=== PATIENT | female | born 1975 | race Caucasian/White ===

== ENCOUNTER 2017-08-06 11:59 | Observation (INO) | payer BC ==
[2017-08-06] MEDS ORDERED: Sodium Chloride 0.9% 1,000 ML IV STA (14:30)
[2017-08-06 14:51] LABS: BASO % 0.4 % (0.0-2.0); EOS # 0.1 K/uL (0.0-0.7); EOS % 1.1 % (0.0-4.0); HEMOGLOBIN 14.5 g/dL (12.0-16.0); LYMPH # 1.9 K/uL (1.0-4.3); MEAN CORPUSCULAR HEMOGLOBIN 30.3 pg (27.0-31.0); MEAN CORPUSCULAR HGB CONC 33.3 g/dL (33.0-37.0); MEAN PLATELET VOLUME 9.5 fl (7.2-11.7); MONO # 0.6 K/uL (0.0-0.8); MONO % 6.1 % (0.0-10.0); NEUT # 7.5 K/uL (1.8-7.0); NEUT % 73.4 % (50.0-75.0); NRBC % 0.2 % (0.0-0.0); RBC 4.79 Mil/uL (3.80-5.20); RED CELL DISTRIBUTION WIDTH 12.7 % (11.5-14.5); WHITE BLOOD COUNT 10.2 K/uL (4.8-10.8)
[2017-08-06 15:00] LABS: ALB/GLOB RATIO 1.1 (1.0-2.1); ALBUMIN 4.2 g/dL (3.5-5.0); ALT/SGPT 35 U/L (9-52); AST/SGOT 19 U/L (14-36); BLOOD UREA NITROGEN 20 mg/dl (7-17); CALCIUM 9.9 mg/dL (8.4-10.2); GFR AFRICAN-AMERICAN > 60; GFR NON-AFRICAN AMERICAN > 60
[2017-08-06 15:14] LABS: SQUAMOUS EPITHIAL 3 /hpf (0-5); URINE AMORPHOUS SEDIMENT RARE /ul (<OCC); URINE BACTERIA RARE (<OCC); URINE BILIRUBIN NEGATIVE (NEGATIVE); URINE BLOOD SMALL (NEGATIVE); URINE CLARITY CLOUDY (Clear); URINE COLOR YELLOW (YELLOW); URINE GLUCOSE (UA) NEG (Normal); URINE LEUKOCYTE ESTERASE SMALL Leu/uL (Negative); URINE NITRATE NEGATIVE (NEGATIVE); URINE PROTEIN NEGATIVE (NEGATIVE); URINE UROBILINOGEN 0.2-1.0 mg/dL (0.2-1.0)
[2017-08-06] MEDS ORDERED: Sodium Chloride 0.9% 100 ML ONE (15:54)
[2017-08-06] MEDS ORDERED: Iodixanol 320 MG/ML 100 ML BOTTLE IV ONE (15:54)
--- NOTE | 2017-08-06 16:55 | CT ---
PROCEDURE: CT Angiography of the Brain. HISTORY: severe ongoing headache COMPARISON: None available. TECHNIQUE: CT angiography of the intracranial and cervical arteries was performed. Coronal and sagittal maximum intensity projection reformated images were generated. This CT exam was performed using one or more of the following dose reduction techniques: Automated exposure control, adjustment of the mA and/or kV according to patient size, and/or use of iterative reconstruction technique. FINDINGS: INTERNAL CEREBRAL ARTERIES: Unremarkable. The skull base, petrous, cavernous and supraclinoid segments are bilaterally widely patent. ANTERIOR CEREBRAL ARTERIES: Unremarkable. A1 and A2 segments are widely patent. Smaller distal branches unremarkable, as visualized. MIDDLE CEREBRAL ARTERIES: Unremarkable. M1 and M2 segments are widely patent. Perisylvian branches grossly symmetric. POSTERIOR CIRCULATION: Basilar Artery: Unremarkable. Distal Vertebral Arteries: Unremarkable. Posterior Cerebral Arteries: A robust right T1 post cerebral artery is identified with a hypoplastic left P1 segment. Posterior Inferior Cerebellar Arteries: Unremarkable. NECK CTA: Common Carotid arteries: The bilateral common carotid appear widely patent from their origins to their bifurcations with no significant stenosis appreciated. No evidence to suggest common carotid artery dissection. Internal Carotid arteries: No significant stenosis is appreciated throughout the cervical internal carotid artery segments bilaterally and there is no evidence of dissection either. External Carotid arteries: Appear unremarkable bilaterally. Vertebral arteries: The bilateral vertebral arteries appear normal in caliber from their origins to their junction with the basilar artery. No significant stenosis or definite pattern of dissection. ANEURYSM/ VASCULAR MALFORMATIONS: None. OTHER FINDINGS: IMPRESSION: Unremarkable brain and neck CT angiography.
--- NOTE | 2017-08-06 17:10 | ED PDOC ---
HPI: Headache Time Seen by Provider: 08/06/17 14:05 Chief Complaint (Nursing): Headache Chief Complaint (Provider): neck pain, headache History Per: Patient, Family (mother) History/Exam Limitations: no limitations Onset/Duration Of Symptoms: Days (2 wks) Current Symptoms Are (Timing): Still Present Severity: Severe Quality: Sharp Preceeding Symptoms: None Associated Symptoms: denies: Photophobia, Blurred Vision, Nausea, Vomiting Additional Complaint(s): 41yo female presents to ED with mother states having ongoing and worsening neck pain radiating to the occiput for last 2 weeks. Has been seen in 3 EDs now with multiple imaging and diagnostic testing, has copies of CT brain (no contrast), [facility]. Given robaxin now flexeril with no relief. Notes headache wraps to superior head, denies fever, photophobia, vomiting, change vision. She does not sound hypersensitivity. Denies syncope, seizure, head trauma, focal weakness or prior hx migrane/headache. Past Medical History Reviewed: Historical Data, Nursing Documentation, Vital Signs Vital Signs: Last Vital Signs Temp 98.6 F 08/06/17 12:27 Pulse 84 08/06/17 12:27 Resp 16 08/06/17 12:27 BP 103/68 08/06/17 12:27 Pulse Ox 99 08/06/17 12:27 - Medical History PMH: No Chronic Diseases - Surgical History Surgical History: No Surg Hx - Family History Family History: States: Unknown Family Hx - Living Arrangements Living Arrangements: With Family - Social History Current smoker - smoking cessation education provided: No - Home Medications Home Medications: Ambulatory Orders Medication Instructions Recorded Cyclobenzaprine [Flexeril] 10 mg PO Q8H PRN 08/06/17 Diazepam [Valium] 2 mg PO Q8H PRN 08/06/17 Ketorolac Tromethamine [Toradol] 10 mg PO Q6H PRN 08/06/17 Methylprednisolone [Medrol Dose 4 mg PO ASDIR 08/06/17 Pack (21 tabs)] - Allergies Allergies/Adverse Reactions: Allergies Allergy/AdvReac Type Severity Reaction Status Date / Time No Known Allergies Allergy Verified 08/06/17 12:26 Review of Systems ROS Statement: Except As Marked, All Systems Reviewed And Found Negative Constitutional: Negative for: Fever, Chills Cardiovascular: Negative for: Chest Pain, Palpitations Respiratory: Negative for: Cough, Shortness of Breath Gastrointestinal: Negative for: Nausea, Vomiting Genitourinary Female: Negative for: Dysuria, Frequency Musculoskeletal: Positive for: Neck Pain Neurological: Positive for: Headache. Negative for: Weakness, Numbness, Incoordination, Change in Speech, Seizures, Altered Mental Status, Dizziness Psych: Negative for: Anxiety, Suicidal ideation Physical Exam - Reviewed Nursing Documentation Reviewed: Yes Vital Signs Reviewed: Yes - Physical Exam Appears: Positive for: Well, Non-toxic, No Acute Distress Head Exam: Positive for: ATRAUMATIC, NORMAL INSPECTION, NORMOCEPHALIC Skin: Positive for: Normal Color, Warm, DRY Eye Exam: Positive for: EOMI, Normal appearance, PERRL Neck: Positive for: Decreased ROM, Limited ROM, Pain On Movement Of Neck Cardiovascular/Chest: Positive for: Regular Rate, Rhythm Respiratory: Positive for: CNT, Normal Breath Sounds Gastrointestinal/Abdominal: Positive for: Normal Exam, Bowel Sounds, Soft Back: Positive for: Normal Inspection Extremity: Positive for: Normal ROM Neurologic/Psych: Positive for: Alert, Oriented - Laboratory Results Result Diagrams: 08/06/17 14:45 08/06/17 14:45 - ECG O2 Sat by Pulse Oximetry: 99 Medical Decision Making Medical Decision Making: labs ordered and results reviewed flu neg WBC normal Dr Bain neurologist saw patient in ED, rec CTA head/neck and admission given persistent symptoms and failure outpt treatment. Does not believe this is meningitis. Accession No. : [id number] Patient Name / ID : ESTHER BIJAN / [id number] Exam Date : 08/06/2017 15:59:48 ( Addendum_Approved ) Study Comment : Sex / Age : F / [id number] Creator : Jelani Garcia MD Dictator : Jelani Garcia MD Canoe Inspector Final : Hammer Adjuster : Jelani Garcia MD Approver2 : Report Date : 08/06/2017 16:54:21 My Comment : ADDENDUM: Contrast Dose: Visipaque 320, 80 cc Radiation dose:Total exam DLP = 2344.84 mGy-cm. [ Addendum Report Added by Jelani Garcia MD at 08/06/2017 16:57:43 ] PROCEDURE: CT Angiography of the Brain. HISTORY: severe ongoing headache COMPARISON: None available. TECHNIQUE: CT angiography of the intracranial and cervical arteries was performed. Coronal and sagittal maximum intensity projection reformated images were generated. This CT exam was performed using one or more of the following dose reduction techniques: Automated exposure control, adjustment of the mA and/or kV according to patient size, and/or use of iterative reconstruction technique. FINDINGS: INTERNAL CEREBRAL ARTERIES: Unremarkable. The skull base, petrous, cavernous and supraclinoid segments are bilaterally widely patent. ANTERIOR CEREBRAL ARTERIES: Unremarkable. A1 and A2 segments are widely patent. Smaller distal branches unremarkable, as visualized. MIDDLE CEREBRAL ARTERIES: Unremarkable. M1 and M2 segments are widely patent. Perisylvian branches grossly symmetric. POSTERIOR CIRCULATION: Basilar Artery: Unremarkable. Distal Vertebral Arteries: Unremarkable. Posterior Cerebral Arteries: A robust right T1 post cerebral artery is identified with a hypoplastic left P1 segment. Posterior Inferior Cerebellar Arteries: Unremarkable. NECK CTA: Common Carotid arteries: The bilateral common carotid appear widely patent from their origins to their bifurcations with no significant stenosis appreciated. No evidence to suggest common carotid artery dissection. Internal Carotid arteries: No significant stenosis is appreciated throughout the cervical internal carotid artery segments bilaterally and there is no evidence of dissection either. External Carotid arteries: Appear unremarkable bilaterally. Vertebral arteries: The bilateral vertebral arteries appear normal in caliber from their origins to their junction with the basilar artery. No significant stenosis or definite pattern of dissection. ANEURYSM/ VASCULAR MALFORMATIONS: None. OTHER FINDINGS: IMPRESSION: Unremarkable brain and neck CT angiography. MRI brain obtained TECHNIQUE: Magnetic resonance images of the head/brain without intravenous contrast in multiple planes. COMPARISON: CTA HEAD NECK BUNDLE 2017-08-06 15:59 FINDINGS: Brain: Age-indeterminate subdural collections/hematomas noted bilaterally measuring up to 5 mm on the left Mild nonspecific white matter disease. No acute infarction Ventricles: Unremarkable. No ventriculomegaly. Bones/joints: Unremarkable. Sinuses: Unremarkable as visualized. No acute sinusitis. Mastoid air cells: Unremarkable as visualized. No mastoid effusion. Orbits: Unremarkable as visualized. IMPRESSION: Age-indeterminate subdural collections/hematomas bilaterally greater on the left. No significant shift. Continued followup as clinically indicated Mild white matter disease No evidence for recent infarction.Please see discussion above. Thank you for allowing us to participate in the care of your patient. Dictated and Authenticated by: Adilson Wright MD 08/06/2017 8:02 PM Eastern Time ([place] & [place]) Dr Bain neurology aware, no need for neurosurgery consult at this time Patient continues to deny trauma or assault MRI CSpine pending read D/w Dr Hernandez, upgrade to tele MRI CSpine endorsed to Dr Neff patient updated on findings Disposition - Clinical Impression Clinical Impression: Subdural hematoma - Patient ED Disposition Is Patient to be Admitted: Yes Counseled Patient/Family Regarding: Studies Performed - Disposition Disposition Time: 19:00 Condition: FAIR - Pt Status Changed To: Hospital Disposition Of: Observation - POA Present On Arrival: None
--- NOTE | 2017-08-06 23:39 | CP.PCM.CON ---
History of Present Illness - History of Present Illness History of Present Illness: 41 yr old woman with new onset neck pain, 9/10, throbbing and stabbing in nature, not relieved by IVpain medications, radiating to posterior occipital region, with no pmh, presents to the [facility] after seeking consultation from [facility]. She had CT and Ct with contrast performed, both of which were normal, and she has beengiven multiple rounds of IV meds that are not helping her pain. She denies any radicular symptoms, weakness, or trauma. She does lift weights several times a week and has neck pain following these workouts. PMH/PSH: none FH/SH: umarried, no children. 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 Drinks occasionally, no tobacco. All: nkda Normal neurological exam: no hoffmans, no meningismus, VFF, gait normal, no rhomberg, no weakness. Meds Allergies/Adverse Reactions: Allergies Allergy/AdvReac Type Severity Reaction Status Date / Time No Known Allergies Allergy Verified 08/06/17 12:26 - Medications Medications: Current Medications Sodium Chloride (Sodium Chloride 0.9%) 1,000 mls @ 1,000 mls/hr IV .Q1H STA Stop: 08/06/17 15:29 Last Admin: 08/06/17 14:46 Dose: 1,000 mls/hr Results - Vital Signs Recent Vital Signs: Last Vital Signs Temp 98.6 F 08/06/17 12:27 Pulse 84 08/06/17 12:27 Resp 16 08/06/17 12:27 BP 103/68 08/06/17 12:27 Pulse Ox 99 08/06/17 12:27 - Labs Result Diagrams: 08/06/17 14:45 08/06/17 14:45 Labs: Laboratory Results - last 24 hr 08/06/17 08/06/17 08/06/17 14:45 14:45 14:45 WBC 10.2 RBC 4.79 Hgb 14.5 Hct 43.6 MCV 91.0 MCH 30.3 MCHC 33.3 RDW 12.7 Plt Count 216 MPV 9.5 Neut % (Auto) 73.4 Lymph % (Auto) 19.0 L Alcorn % (Auto) 6.1 Eos % (Auto) 1.1 Baso % (Auto) 0.4 Neut # (Auto) 7.5 H Lymph # (Auto) 1.9 Alcorn # (Auto) 0.6 Eos # (Auto) 0.1 Baso # (Auto) 0.0 Sodium 143 Potassium 4.7 Chloride 101 Carbon Dioxide 28 Anion Gap 19 BUN 20 H Creatinine 0.6 L Est GFR ( Amer) > 60 Est GFR (Non-Af Amer) > 60 Random Glucose 89 Calcium 9.9 Total Bilirubin 0.8 AST 19 ALT 35 Alkaline Phosphatase 44 Total Creatine Kinase 20 L Total Protein 7.9 Albumin 4.2 Globulin 3.7 Albumin/Globulin Ratio 1.1 Influenza Typ A,B (EIA) Negative for flu a/b - Imaging and Cardiology MRI - head Status: Report reviewed by me (MRi Brain shows bilateral oldsubdural hematomas as per reprt. CT head normal. ) Assessment & Plan - Assessment and Plan (Free Text) Assessment: 41 yr old woman with tension severe headache, and chronic severe muscle spasm with component of occipital neuralgia. Iwould recommend outpatient TPI injections to trpezius and occipital nerve blocks and now inpatint pain management. She also seems depressed. Plan: 1. IV toradol, reglan 2. MRI Brain /MRI c spine 3. psychiatry outptient
[2017-08-07 00:17] VITALS: BMI 20.2
[2017-08-07] MEDS ORDERED: Magnesium Sulfate 2 gm/50 ml 2 GM/50 ML BAG IVPB ONE (09:22)
--- NOTE | 2017-08-07 10:48 | MRI ---
PROCEDURE: MRI BRAIN WITHOUT CONTRAST HISTORY: Headache COMPARISON: None. TECHNIQUE: Multiplanar, multisequence MR images of the brain were obtained without intravenous contrast enhancement. FINDINGS: HEMORRHAGE: None DWI: No evidence of an acute or early subacute infarction. BRAIN PARENCHYMA: There are multiple small T2/FLAIR hyperintense foci in the subcortical supratentorial white matter and a solitary T2/FLAIR hyperintense foci in the left periventricular white matter. There is a small left frontal and parietal convexity chronic subdural hematoma/ hygroma measuring 4 mm in width. There is also a smaller the right convexity chronic subdural hematoma/ hygroma measuring 2 mm in width. There is no mass or mass effect. VENTRICLES: The ventricles are normal in size, shape and configuration. CRANIUM: There is normal bone marrow signal pattern. ORBITS: Grossly unremarkable. PARANASAL SINUSES/MASTOIDS: Predominantly clear. VASCULAR SYSTEM: There are normal signal voids in the larger intracranial arteries. OTHER FINDINGS: None. IMPRESSION: 1. Bilateral small chronic subdural hematomas/ hygromas, [id number] as described above without mass effect or midline shift. 2. Minimal supratentorial and left periventricular white matter changes are strictly nonspecific, the differential considerations include migraine headache effect, gliosis, vasculitis, demyelinating disease including multiple sclerosis and early chronic microangiopathic changes. Clinical correlation and follow-up is advised. A preliminary report was provided by [employer] [facility].
--- NOTE | 2017-08-07 11:00 | MRI ---
PROCEDURE: MR CERVICAL SPINE WITHOUT CONTRAST HISTORY: Neck pain COMPARISON: None available. TECHNIQUE: Multiecho multiplanar sequences were performed through the cervical spine without the use of intravenous contrast. FINDINGS: There is straightening of the cervical spine with loss of normal cervical lordosis. Vertebral alignment is normal. Vertebral height is maintained. Bone marrow signal is within normal limits. The craniocervical junction is normal. The atlantoaxial joint. The cervical cord is normal in contour, caliber and has normal intrinsic signal. The paraspinous soft tissues are normal. C2-C3: No disc herniation, spinal canal stenosis or neural foraminal narrowing. C3-C4: Right posterolateral disc herniation. No spinal canal stenosis or neural foraminal narrowing C4-C5: No disc herniation, spinal canal stenosis or neural foraminal narrowing. C5-C6: Right posterolateral disc herniation. No central spinal canal stenosis. Mild bilateral facet arthropathy contribute to mild right neural foraminal narrowing. No left neural foraminal narrowing. C6-C7: No disc herniation, spinal canal stenosis or neural foraminal narrowing. C7-T1: No disc herniation, spinal canal stenosis or neural foraminal narrowing. OTHER FINDINGS: None. IMPRESSION: 1. Mild multilevel degenerative disc disease, worse at C5-6 with a right posterolateral disc herniation and mild right neural foraminal narrowing. No spinal canal stenosis. 2. At C3-4 right posterolateral disc herniation. No spinal canal stenosis or neural foraminal narrowing. See 3. Straightening of the cervical spine may be positional or related to muscle spasm. A preliminary report was provided by [employer] [facility].
--- NOTE | 2017-08-07 11:13 | CP.PCM.PN ---
Subjective - Date & Time of Evaluation Date of Evaluation: 08/07/17 Time of Evaluation: 11:05 - Subjective Subjective: Ms. Nascimento was seen and examined at the bedside. She is alert, oriented with complains of severe headache located in the right frontal area radiating to the occipital area, she further states of back pain with pain scale 10/10. She is lying in her bed crying. She also states of being sensitive to light, noise, but denies any blurred vision, diplopia, nausea. Cervical MRI showed mild multilevel degenerative disc disease, worse at 5-6 with a right posterior lateral disc herniation and mild right neural foraminal narrowing. No spinal canal stenosis. At C3-4 right posterolateral disc herniation. No spinal canal stenosis or neural foraminal narrowing. Straightening of the cervical spine may be positional or related to muscle spasm.. HYUN of the brain showed bilateral small chronic subdural hematomas/ hygromas left greater than the right without mass effect or midline shift. Minimal supertentorial and left periventricular white matter chaNGES ARE STRICTLY NONSPECIFIC. There was no untoward events overnight. Objective - Vital Signs/Intake and Output Vital Signs (last 24 hours): Temp Pulse Resp BP Pulse Ox 98.3 F 75 18 98/62 L 98 08/07/17 08:00 08/07/17 08:00 08/07/17 08:00 08/07/17 08:00 08/07/17 08:00 - Medications Medications: Current Medications Ketorolac Tromethamine (Toradol) 30 mg IVP Q6 PRN PRN Reason: Pain, moderate (4-7) Last Admin: 08/07/17 10:04 Dose: 30 mg - Labs Labs: 08/06/17 14:45 08/06/17 14:45 - Constitutional Appears: No Acute Distress - Head Exam Head Exam: NORMAL INSPECTION - Neurological Exam Neurological Exam: Alert, Awake, Oriented x3 Neuro motor strength exam: Left Upper Extremity: 5, Right Upper Extremity: 5, Left Lower Extremity: 5, Right Lower Extremity: 5 Additional comments: She is alert, oriented follow all commands sensation remains intact. Assessment and Plan (1) Headache Assessment & Plan: Case discussed with Dr. Bain, continue all current medical regimen. Recommend outpatient TPI injections to trapezius and occipital nerve blocks. Recommend outpatient physical therapy for her cervical foraminal disc narrowing. Recommend Toradol 30 mg IV for her headache as an inpatient. Recommend to follow up with an outpatient neurologist upon discharge. May discharge to home if stable. Status: Acute
[2017-08-07] MEDS ORDERED: Oxycodone/Acetaminophen 5/325 mg Tab PO STA (11:58)
--- NOTE | 2017-08-07 12:02 | CP.PCM.HP ---
History of Present Illness - History of Present Illness History of Present Illness: 41 y/o F with no PMHx presented to Ed last night c/o headaches for 1 week. Headaches are mostly occipital and frontal, constant, does not improve with pain meds, had 1 vomiting episode Yesterday that resolved spontaneously, denies nausea, vision changes, CP, SOB, leg pain, sick contacts, recent traveling, Hx of headaches, trauma. Patient works from home most of the time. She was seen at [facility] 2 days ago and reassured "everything was ok". Patient states. Admits neck pain. MRI of the head anc cervical spine performed at ED showed cervical disc herniation and cerebral subdural hematoma/hygroma and white matter changes. Afebrile. C/O sore throat. Present on Admission - Present on Admission Any Indicators Present on Admission: No Review of Systems - Review of Systems All systems: reviewed and no additional remarkable complaints except - EENT Nose/Mouth/Throat: Sore Throat - Neurological Neurological: Headaches Past Patient History - Past Medical History & Family History Past Medical History?: No - Past Social History Smoking Status: Never Smoked - CARDIAC Hx Cardiac Disorders: (see triage 2 note) - MUSCULOSKELETAL/RHEUMATOLOGICAL Hx Falls: No - PSYCHIATRIC Hx Substance Use: No - ANESTHESIA Hx Anesthesia: No Hx Anesthesia Reactions: No Hx Malignant Hyperthermia: No Meds Allergies/Adverse Reactions: Allergies Allergy/AdvReac Type Severity Reaction Status Date / Time No Known Allergies Allergy Verified 08/06/17 12:26 Physical Exam - Constitutional Appears: Non-toxic, In Acute Distress (headache) - Head Exam Head Exam: ATRAUMATIC, NORMAL INSPECTION - Eye Exam Eye Exam: EOMI, PERRL - ENT Exam ENT Exam: Mucous Membranes Moist, Normal Oropharynx - Neck Exam Neck exam: Positive for: Full Rom. Negative for: Meningismus - Respiratory Exam Respiratory Exam: Clear to Auscultation Bilateral, NORMAL BREATHING PATTERN. absent: Decreased Breath Sounds - Cardiovascular Exam Cardiovascular Exam: REGULAR RHYTHM, +S1, +S2. absent: Gallop - GI/Abdominal Exam GI & Abdominal Exam: Normal Bowel Sounds, Soft. absent: Firm, Rigid, Tenderness - Extremities Exam Extremities exam: Positive for: full ROM, normal capillary refill, normal inspection. Negative for: calf tenderness, pedal edema, tenderness - Back Exam Back exam: muscle spasm Additional comments: Cervical - Neurological Exam Neurological exam: Alert, CN II-XII Intact, Oriented x3 Additional comments: Benny neg - Psychiatric Exam Psychiatric exam: Normal Affect, Normal Mood - Skin Skin Exam: Intact, Normal Color, Warm Results - Vital Signs Recent Vital Signs: Last Vital Signs Temp 98.2 F 08/07/17 11:51 Pulse 80 08/07/17 11:51 Resp 18 08/07/17 11:51 BP 107/67 08/07/17 11:51 Pulse Ox 99 08/07/17 11:51 - Labs Result Diagrams: 08/06/17 14:45 08/06/17 14:45 Labs: Laboratory Results - last 24 hr 08/06/17 08/06/17 08/06/17 14:45 14:45 14:45 WBC 10.2 RBC 4.79 Hgb 14.5 Hct 43.6 MCV 91.0 MCH 30.3 MCHC 33.3 RDW 12.7 Plt Count 216 MPV 9.5 Neut % (Auto) 73.4 Lymph % (Auto) 19.0 L Haines % (Auto) 6.1 Eos % (Auto) 1.1 Baso % (Auto) 0.4 Neut # (Auto) 7.5 H Lymph # (Auto) 1.9 Haines # (Auto) 0.6 Eos # (Auto) 0.1 Baso # (Auto) 0.0 Sodium 143 Potassium 4.7 Chloride 101 Carbon Dioxide 28 Anion Gap 19 BUN 20 H Creatinine 0.6 L Est GFR ( Amer) > 60 Est GFR (Non-Af Amer) > 60 Random Glucose 89 Calcium 9.9 Total Bilirubin 0.8 AST 19 ALT 35 Alkaline Phosphatase 44 Total Creatine Kinase 20 L Total Protein 7.9 Albumin 4.2 Globulin 3.7 Albumin/Globulin Ratio 1.1 Urine Color Urine Clarity Urine pH Ur Specific Ellinger Urine Protein Urine Glucose (UA) Urine Ketones Urine Blood Urine Nitrate Urine Bilirubin Urine Urobilinogen Ur Leukocyte Esterase Urine RBC (Auto) Urine Microscopic WBC Ur Squamous Epith Cells Amorphous Sediment Urine Bacteria Influenza Typ A,B (EIA) Negative for flu a/b 08/06/17 14:45 WBC RBC Hgb Hct MCV MCH MCHC RDW Plt Count MPV Neut % (Auto) Lymph % (Auto) Haines % (Auto) Eos % (Auto) Baso % (Auto) Neut # (Auto) Lymph # (Auto) Haines # (Auto) Eos # (Auto) Baso # (Auto) Sodium Potassium Chloride Carbon Dioxide Anion Gap BUN Creatinine Est GFR ( Amer) Est GFR (Non-Af Amer) Random Glucose Calcium Total Bilirubin AST ALT Alkaline Phosphatase Total Creatine Kinase Total Protein Albumin Globulin Albumin/Globulin Ratio Urine Color Yellow Urine Clarity Cloudy Urine pH 7.0 Ur Specific Ellinger 1.013 Urine Protein Negative Urine Glucose (UA) Neg Urine Ketones Negative Urine Blood Small Urine Nitrate Negative Urine Bilirubin Negative Urine Urobilinogen 0.2-1.0 Ur Leukocyte Esterase Small Urine RBC (Auto) 5 H Urine Microscopic WBC 7 H Ur Squamous Epith Cells 3 Amorphous Sediment Rare H Urine Bacteria Rare Influenza Typ A,B (EIA) Assessment & Plan - Assessment and Plan (Free Text) Assessment: 41 y/o F admitted for intractable headache Intractable headaches Acute, Unknown cause Cervical disc herniation Subdural hematoma/hygroma/white matter changes on MRI of the brain Neurology consult appreciated pain control no meningeal signs at this time. Afebrile
[2017-08-08 06:03] LABS: BASO % 0.1 % (0.0-2.0); EOS # 0.2 K/uL (0.0-0.7); EOS % 1.8 % (0.0-4.0); HEMOGLOBIN 12.9 g/dL (12.0-16.0); LYMPH # 1.3 K/uL (1.0-4.3); LYMPH % 12.6 % (20.0-40.0); MEAN CELL VOLUME 90.3 fl (81.0-99.0); MEAN CORPUSCULAR HGB CONC 33.2 g/dL (33.0-37.0); MEAN PLATELET VOLUME 9.2 fl (7.2-11.7); MONO # 0.7 K/uL (0.0-0.8); MONO % 6.9 % (0.0-10.0); NEUT # 8.2 K/uL (1.8-7.0); NEUT % 78.6 % (50.0-75.0); NRBC % 0.1 % (0.0-0.0); RBC 4.29 Mil/uL (3.80-5.20); RED CELL DISTRIBUTION WIDTH 12.9 % (11.5-14.5); WHITE BLOOD COUNT 10.4 K/uL (4.8-10.8)
[2017-08-08 06:47] LABS: ALB/GLOB RATIO 1.1 (1.0-2.1); ALBUMIN 3.5 g/dL (3.5-5.0); ALT/SGPT 31 U/L (9-52); AST/SGOT 27 U/L (14-36); BLOOD UREA NITROGEN 14 mg/dl (7-17); CALCIUM 8.9 mg/dL (8.4-10.2); GFR AFRICAN-AMERICAN > 60; GFR NON-AFRICAN AMERICAN > 60
[2017-08-08] MEDS ORDERED: Valproate 500 MG in Sodium Chloride 0.9% 100 ML IVPB ONE (09:02)
[2017-08-08] MEDS ORDERED: Naproxen 500 MG TAB PO SCH (10:00)
[2017-08-08] MEDS ORDERED: Pantoprazole 40 mg EC Tab PO SCH (10:00)
--- NOTE | 2017-08-08 10:47 | CP.PCM.PN ---
Subjective - Date & Time of Evaluation Date of Evaluation: 08/08/17 Time of Evaluation: 10:43 - Subjective Subjective: Ms. Nascimento was seen and examined at the bedside. She is alert, oriented and states thar her headache improved a little bit from previous examination. At present her headache is 6/10, denies ant blurred vision, dizziness, nausea, or vomiting. The patient was advised by Dr. Bain to see a neurologist who specialize with headaches, prescription was given to the patient. She further states of having poor appetite when headache occurs. There was no untoward events overnight. Objective - Vital Signs/Intake and Output Vital Signs (last 24 hours): Temp Pulse Resp BP Pulse Ox 98.1 F 102 H 18 129/86 100 08/08/17 08:00 08/08/17 08:00 08/08/17 08:00 08/08/17 08:00 08/08/17 08:00 - Medications Medications: Current Medications Ketorolac Tromethamine (Toradol) 30 mg IVP Q6 PRN PRN Reason: Pain, moderate (4-7) Last Admin: 08/08/17 05:33 Dose: 30 mg Naproxen (Naproxen) 500 mg PO Q12 [facility] Pantoprazole Sodium (Protonix Ec Tab) 40 mg PO DAILY [facility] Last Admin: 08/08/17 10:19 Dose: 40 mg Tramadol HCl (Ultram) 50 mg PO Q8 PRN PRN Reason: Pain, severe (8-10) Last Admin: 08/08/17 10:18 Dose: 50 mg - Labs Labs: 08/08/17 05:10 08/08/17 05:10 - Constitutional Appears: No Acute Distress - Head Exam Head Exam: NORMAL INSPECTION - Neurological Exam Neurological Exam: Alert, Awake Neuro motor strength exam: Left Upper Extremity: 5, Right Upper Extremity: 5, Left Lower Extremity: 5, Right Lower Extremity: 5 Additional comments: Neurological unchanged from previous examination. Assessment and Plan (1) Headache Assessment & Plan: Case discussed with Dr. Bain, continue all current medical, physical therapies. Recommend to see Dr. kimberley Stallworth who specialized with headaches and physical therapy. Status: Acute
[2017-08-08] MEDS ORDERED: Apap-Butalbital-Caffeine 325-50-40mg Tab PO ONE (14:16)
--- NOTE | 2017-08-08 15:47 | CP.PCM.PN ---
Subjective - Date & Time of Evaluation Date of Evaluation: 08/08/17 Time of Evaluation: 10:50 - Subjective Subjective: Patient feeling improved but still c/o headache needing pain meds around the clock and not getting enough relief with current regimen. Also nausea intermittent. Neuro evaluated patient again today. Afebrile. No other complains. Patient revaluated in the afternoon. Had 1 episode of vomiting after lunch and is requesting more pain meds for headache. Last tramadol [address] Hernandez aware. Treatment readjusted. Objective - Vital Signs/Intake and Output Vital Signs (last 24 hours): Temp Pulse Resp BP Pulse Ox 98.6 F 69 18 103/63 98 08/08/17 13:00 08/08/17 13:00 08/08/17 13:00 08/08/17 13:00 08/08/17 13:00 - Medications Medications: Current Medications Ketorolac Tromethamine (Toradol) 30 mg IVP Q6 PRN PRN Reason: Pain, moderate (4-7) Last Admin: 08/08/17 05:33 Dose: 30 mg Naproxen (Naproxen) 500 mg PO Q12 [facility] Last Admin: 08/08/17 10:56 Dose: 500 mg Ondansetron HCl (Zofran Inj) 4 mg IVP Q6 PRN PRN Reason: Nausea/Vomiting Last Admin: 08/08/17 15:00 Dose: 4 mg Pantoprazole Sodium (Protonix Ec Tab) 40 mg PO DAILY [facility] Last Admin: 08/08/17 10:19 Dose: 40 mg Tramadol HCl (Ultram) 50 mg PO Q6 [facility] - Labs Labs: 08/08/17 05:10 08/08/17 05:10 - Constitutional Appears: Non-toxic, In Acute Distress (Headache) - Eye Exam Eye Exam: EOMI, PERRL. absent: Nystagmus - ENT Exam ENT Exam: Mucous Membranes Moist - Respiratory Exam Respiratory Exam: Clear to Ausculation Bilateral, NORMAL BREATHING PATTERN. absent: Rales - Cardiovascular Exam Cardiovascular Exam: REGULAR RHYTHM, +S1, +S2. absent: Gallop - GI/Abdominal Exam GI & Abdominal Exam: Soft, Normal Bowel Sounds. absent: Tenderness - Neurological Exam Neurological Exam: Alert, Awake, CN II-XII Intact, Oriented x3, Reflexes Normal. absent: Motor Sensory Deficit - Psychiatric Exam Psychiatric exam: Depressed (Mild) - Skin Skin Exam: Normal Color, Warm Assessment and Plan - Assessment and Plan (Free Text) Assessment: Intractable headache, Cervical disc herniation, Chronic subdural hematoma/ hygroma Neuro on board: No other interventions at this time. Patient cleared to DC and f /u as outpatient with headache specialist. On Toradol pRN Start Naproxen 500 mg BID Start Tramadol 50 mg q8h PRN for pain Zofran 4 mg IV PRN for nausea/vomiting PT for walk test Blood work pending Advised patient that she could be DC home with pain/nausea medication as long as she feels physically able to walk without dizziness Patient states that will try walk test again(Failed previous due to low BP)
[2017-08-08 15:59] VITALS: O2SAT 100
[2017-08-08 16:22] VITALS: BP 103/65; PULSE 75; RESP 16; TEMP 97.9
[2017-08-08 16:55] LABS: RAPID PLASMA REAGIN NONREACTIVE (NONREACTIVE)
== END 2017-08-08 17:54 | disposition home or self-care (01) ==
LOC: H.ER 11:59 → H.ERHOLD 17:50 → H.TEL 23:20
PROVIDERS: ADMIT Family Medicine; ATTEND Family Medicine
DX: R51 Headache (principal); M50.20 Other cervical disc displacement, unspecified cervical region; M54.81 Occipital neuralgia; M62.838 Other muscle spasm; M50.322 Other cervical disc degeneration at C5-C6 level; D18.1 Lymphangioma, any site
CPT/HCPCS: 36415; 70496; 70498; 70551; 72141; 80053; 81003; 81025; 82550; 84443; 84703; 85025; 85651; 86038; 86430; 86592; 87804; 96365; 96372; 96375; 96376; 97161; 99285; G0378; G8978; G8979; G8980; J1885; J2405; J2765; J3030; J7040; Q9967